=== PATIENT | male | born 1945 | race Caucasian/White ===

== ENCOUNTER 2022-01-01 12:58 | Day surgery (SDC) | payer OTHER, MEDICARE ==
[~2022-01-01] VITALS: Ht 177.8 cm; Wt 94.1 kg
[~2022-01-01 12:58] MED LIST: ALLOPURINOL300 MG PO; CENTRUM SILVER1 EAC3 PO; ENBREL50 MG/1 M1 SUB-Q; HYDROCODON-ACE1 EA10 PO; LEVOXYL50 MCG PO; MATZIM LA240 MG PO; METAMUCIL425 GM PO; MINERAL OIL25 ML TOP; MUCINEX DM ER1 EACH PO; NIACIN500 M1 PO; PROAIR HFA8.5 GM INH; SUPER OMEGA PO; TAMSULOSIN HCL0.4 MG PO; VITAMIN D31000 UNIT PO; ZITHROMAX250 MG PO; ZOLPIDEM TARTRA10 MG PO
[2022-01-01] MEDS ORDERED: HUMIRA10 MG/0.1 SQ (13:24)
--- NOTE | 2022-01-01 16:23 | NUR ---
01/01/22 1623 Shavonne Sage 1526 PT ARRIVED IN PACU AWAKE WITH NO C/O'S. ABD SOFT AND PASSING FLATUS. 1535 DR AT BEDSIDE. 1540 SITTING UP IN BED GETTING DRESSED. 1550 DC INSTRUCTIONS GIVEN. ALL QUESTIONS ANSWERED. TO DS ROOM 14 TO WAIT FOR RIDE. REPORT GIVEN TO RN. CALL LIGHT GIVEN AND JUICE.
--- NOTE | 2022-01-03 12:07 | OR ---
[facility] [address], [place] [address] Signed DATE OF OPERATION: 01/01/2022 SURGEON: Norberto Colin MD PREOPERATIVE DIAGNOSES: 1. Episodic left-sided abdominal pain. 2. History of sigmoid resection for diverticular disease 2009 including colostomy and subsequent takedown. POSTOPERATIVE DIAGNOSES: Small polyp, left colon, minimal diverticular changes. PROCEDURE: Total colonoscopy to cecum with cold morcellation polypectomy x1. ANESTHESIA: Intravenous sedation; fentanyl 100 mcg, Versed 3 mg. INDICATIONS: This 76-year-old white man is a patient of Dr. Paige in [place]. He is known to me from the past in 2009, having undergone an emergency sigmoid resection for perforated diverticulitis with colostomy and subsequent takedown in 2010. He has had an episode or two of left-sided abdominal pain of uncertain etiology in the region of previous colostomy site, there is no apparent hernia in the area. He is admitted to undergo colonoscopy. He understands the risk of bleeding, infection, and perforation. FINDINGS: The prep was good. Complete colonoscopy was undertaken to the cecum without question. The anastomosis was widely patent. There were a few scattered diverticula, but not much. There was a small polyp in the left colon, which was excised. There was no finding to account for his symptoms. DESCRIPTION OF PROCEDURE: The patient was brought to the endoscopy suite and placed in the lateral decubitus position, given intravenous sedation to the point of slurred speech and nystagmus. Digital rectal examination was normal. An Olympus video colonoscope was passed in the rectum and manipulated throughout the colon ultimately intubating the cecum itself. The ileocecal valve and appendiceal orifice were normal. The scope was withdrawn from that point and examination throughout Electronically Signed By: NORBERTO COLIN MD 01/03/22 1207 PATIENT NAME: ANUJ GARCIA OPERATIVE REPORT DATE OF : 49 REPORT #: [id number] PHYSICIAN: NORBERTO COLIN MD PCP: AIXA PAIGE MD REPORT IS CONFIDENTIAL AND NOT TO BE RELEASED WITHOUT AUTHORIZATION [facility] [address], [place] [address] Signed showed no sign of abnormality and approximately in the left colon where a small sessile polyp was noted, this was excised with cold morcellation technique. The scope was withdrawn. The anastomosis was widely patent. Retroflexed view of the rectum was normal. The scope was removed and the patient was taken to the recovery room in good condition. CONCLUDING DIAGNOSIS: No explanation based on colonoscopy for his episode of left lower abdominal pain, may have had a limited amount of diverticulitis, but his diverticular burden currently is quite minimal. PLAN: We would recommend high-fiber diet. He will return to the ongoing care of his primary provider, Dr. Paige. If he should have more problems, I am happy to see him again should he have persisting or recurring symptoms. MD HALIE Menendez/BETTY /[id number] cc: Aixa Paige MD Copies: AIXA PAIGE MD ~ Electronically Signed By: NORBERTO COLIN MD 01/03/22 1207 PATIENT NAME: ANUJ GARCIAN OPERATIVE REPORT DATE OF : 49 REPORT #: [id number] PHYSICIAN: NORBERTO COLIN MD PCP: AIXA PAIGE MD REPORT IS CONFIDENTIAL AND NOT TO BE RELEASED WITHOUT AUTHORIZATION
--- NOTE | 2022-01-03 15:09 | PATH ---
[facility] [address], [place] [address] Signed SPECIMEN(S): A SIGMOID POLYP SPECIMEN SOURCE: A. SIGMOID POLYP CLINICAL HISTORY: Colonoscopy. Divertic. with colectomy. Postop: Polyp x 1. FINAL PATHOLOGIC DIAGNOSIS: Colon, sigmoid, polypectomy: - Tubular adenoma. BRP:cml:C2NR MICROSCOPIC EXAMINATION: Histologic sections of all submitted blocks are examined by light microscopy. These findings, together with the gross examination, support the pathologic diagnosis. GROSS DESCRIPTION: The specimen, labeled "WW, #1," and designated on the requisition "sigmoid polyp," is received in formalin and consists of two stephen soft tissue fragments that measure 0.3-0.4 cm in greatest dimension. The specimen is entirely submitted in cassette (A1). AT (under the direct supervision of a pathologist) The Gross Description was prepared using a voice recognition system. The report was reviewed for accuracy; however, sound-alike word errors, addition and/or deletions may occur. If there is any question about this report, please contact Client Services. PERFORMING LABORATORY: The technical component was performed by [facility], [address] [place] [id number] (Bee Robber: Greta Canchola MD; CLIA# [id number]).Professional interpretation was performed by [facility], [facility], [address] [address] (CLIA# [id number]). Diagnostician: Ravi Levin MD Pathologist Electronically Signed 01/03/2022 PATIENT NAME: ANUJ GARCIA PATHOLOGY DATE OF : 49 REPORT #: [id number] PHYSICIAN: VINEET CRUZ PCP: REUBEN HODEGS MD REPORT IS CONFIDENTIAL AND NOT TO BE RELEASED WITHOUT AUTHORIZATION [address] [place], [place] [address] Signed Copies: ~ PATIENT NAME: ANUJ GARCIA PATHOLOGY DATE OF : 49 REPORT #: [id number] PHYSICIAN: VINEET CRUZ PCP: REUBEN HODGES MD REPORT IS CONFIDENTIAL AND NOT TO BE RELEASED WITHOUT AUTHORIZATION
== END 2022-01-01 15:50 | disposition home or self-care (01) ==
LOC: OPS 12:58 → DS 12:58 → OPS 14:00 → DS 14:00 → OPS 15:50
PROVIDERS: ATTEND Surgery
PROC: 0DBN8ZX Excision of Sigmoid Colon, Via Natural or Artificial Opening Endoscopic, Diagnostic (ICD-10-PCS; principal; 2022-01-01 14:00)
DX: D12.5 Benign neoplasm of sigmoid colon (principal); I10 Essential (primary) hypertension; Z87.19 Personal history of other diseases of the digestive system; Z91.030 Bee allergy status; Z20.822 Contact with and (suspected) exposure to COVID-19
CPT/HCPCS: 99153; G0500; J2250; J3010; J7121